=== PATIENT | male | born 1970 | race Two or more races ===

== ENCOUNTER 2024-03-22 14:47 | Emergency (ER) | payer OTHER ==
[~2024-03-22] VITALS: Ht 170.2 cm; Wt 95.3 kg
[2024-03-22 14:58] VITALS: TEMP 98
[2024-03-22] MEDS ORDERED: ACETAMINOPHEN ES 500 MG TABLET ONE (16:54)
[2024-03-22] MEDS: KETOROLAC TROMETHAMINE 15 MG/ML VIAL IM ONE (16:54)
[2024-03-22] MEDS: ACETAMINOPHEN ES 500 MG TABLET PO ONE (16:54)
[2024-03-22] MEDS ORDERED: KETOROLAC TROMETHAMINE 15 MG/ML VIAL ONE (16:54)
[2024-03-22] MEDS ORDERED: ACET-2030 PO (17:28)
[2024-03-22] MEDS ORDERED: KETO10TA2 PO (17:28)
[2024-03-22 18:03] VITALS: BP 139/84; O2SAT 99
== END 2024-03-22 18:00 | disposition home or self-care (01) ==
LOC: ER 16:38
DX: S90.32XA Contusion of left foot, initial encounter (principal); I10 Essential (primary) hypertension; E11.9 Type 2 diabetes mellitus without complications; W20.8XXA Other cause of strike by thrown, projected or falling object, initial encounter; Y93.89 Activity, other specified; Y92.89 Other specified places as the place of occurrence of the external cause; Y99.0 Civilian activity done for income or pay
CPT/HCPCS: 99284; 96372; 73610; 73620; J1885